=== PATIENT | female | born 1995 | race Caucasian/White ===

== ENCOUNTER 2017-08-28 11:07 | Emergency (ER) | payer OTHER ==
[~2017-08-28] VITALS: Ht 167.6 cm; Wt 63.3 kg
[2017-08-28 11:11] VITALS: TEMP 36.5; Ht 167.6 cm; Wt 63.3 kg
[2017-08-28 11:24] VITALS: O2SAT 97
[2017-08-28] MEDS ORDERED: BCPILLS PO (11:33)
[2017-08-28] MEDS ORDERED: SODIUM CHLORIDE 0.9% 1000ML 1,000 ML IV STA (11:42)
--- NOTE | 2017-08-28 11:47 | EMERGENCY ROOM VISIT NOTE ---
History Report prepared by Juliocesar: Madison Bob Under the Supervision of: Dr. Gabriel Reyez M.D. First contact with patient: 11:31 Chief Complaint: SHORTNESS OF BREATH Stated Complaint: SOB WALKING, POS DEHYDRATED, LOW BLOOD SUGAR,TACHY Nursing Triage Summary: SOB with walking, not so much sitting unless I start getting, since last night. Vomited last night and this morning. History of Present Illness The patient is a 21 year old female who presents to the Emergency Room with complaints of constant generalized illness beginning three days ago. The patient notes cough, fatigue, shortness of breath with walking, and two episodes of vomiting. The patient donated blood yesterday. She notes she went skiing last night and had to go to [employer] because her heart was racing and it "wouldn't slow down". The patient went to [facility] this morning and was referred to the ED for a further workup. She denies any fever, body aches, abdominal pain, blood or black stools. The patient's menstrual period was last week and she states it is normal. The patient takes oral contraceptive. She denies any chance of . The patient states she was recently worked up for thyroid issues which was unremarkable. The patient has a family history of of thyroid issues. Source of History: patient, friend Onset: three days ago Position: other (generalized) Quality: other (illness) Timing: constant Associated Symptoms: + cough, + SOB, + vomiting, + fatigue, No fevers, No abdominal pain Review of Systems See HPI for pertinent positives & negatives. A total of 10 systems reviewed and were otherwise negative. Past Medical & Surgical Medical Problems: (1) No Known Active Medical Problems Old medical records were reviewed. Nurse's notes were reviewed and I agree with. Family History Thyroid problem Social History Smoking Status: Never Smoker Drug Use: none Marital Status: single Housing Status: lives with roommate Occupation Status: [employer] Current/Historical Medications Scheduled Control Pills ( Control Pills), 1 TAB PO DAILY Allergies Coded Allergies: No Known Allergies (Unverified , 08/28/17) Physical Exam Vital Signs Date Time Temp Pulse Resp B/P (MAP) Pulse Ox O2 Delivery O2 Flow Rate FiO2 08/28/17 13:11 74 16 107/76 100 Room Air 08/28/17 12:10 83 08/28/17 11:24 87 20 141/106 97 Room Air 08/28/17 11:24 97 Room Air 08/28/17 11:22 99 Room Air 08/28/17 11:11 36.5 97 18 146/75 96 Room Air Physical Exam General: Non-ill appearing young female in no acute distress. HEENT: Normal cephalic atraumatic. Pupils are equal round and reactive to light. Extraocular movements are intact. Oropharynx is pink with moist mucous membranes. No swelling of the mouth lips or tongue. Neck: Supple with a midline trachea. No meningeal signs or stiffness, no JVD or bruits. No Stridor. Chest: Clear to auscultation bilaterally. No wheezes or rhonchi. No increased work of breathing. Heart: regular rate and rhythm. Abdomen: Soft nontender, nondistended without rebound guarding or rigidity. Extremities: No cyanosis clubbing or edema. No calf tenderness or assymetry Spine/Back. Non tender to palpation. No CVA tenderness Skin: Good turgor without rashes. Neurologic exam: Cranial nerves two through 12 are intact. Motor and sensation are intact and symmetrical throughout. Medical Decision & Procedures ER Provider Diagnostic Interpretation: Radiology results as stated below per my review and radiologist interpretation: CHEST ONE VIEW PORTABLE FINDINGS: The cardiac and mediastinal contours are normal. There is no evidence of focal pulmonary consolidation. There is no evidence of failure. No pleural effusions are visualized.[ IMPRESSION: No active disease in the chest. Electronically signed by: Jaden Mosquera M.D. Laboratory Results 08/28/17 11:28 Red Blood Count 4.19, Mean Corpuscular Volume 84.2, Mean Corpuscular Hemoglobin 29.4, Mean Corpuscular Hemoglobin Concent 34.8, Mean Platelet Volume 9.4, Neutrophils (%) (Auto) 68.8, Lymphocytes (%) (Auto) 23.2, Monocytes (%) (Auto) 7.3, Eosinophils (%) (Auto) 0.3, Basophils (%) (Auto) 0.3, Neutrophils # (Auto) 5.22, Lymphocytes # (Auto) 1.76, Monocytes # (Auto) 0.55, Eosinophils # (Auto) 0.02, Basophils # (Auto) 0.02 08/28/17 11:28 Test 08/28/17 11:28 08/28/17 12:00 08/28/17 12:05 White Blood Count 7.58 K/uL (4.8-10.8) Red Blood Count 4.19 M/uL (4.2-5.4) Hemoglobin 12.3 g/dL (12.0-16.0) Hematocrit 35.3 % (37-47) Mean Corpuscular Volume 84.2 fL (80-100) Mean Corpuscular Hemoglobin 29.4 pg (25-34) Mean Corpuscular Hemoglobin Concent 34.8 g/dl (32-36) Platelet Count 323 K/uL (130-400) Mean Platelet Volume 9.4 fL (7.4-10.4) Neutrophils (%) (Auto) 68.8 % Lymphocytes (%) (Auto) 23.2 % Monocytes (%) (Auto) 7.3 % Eosinophils (%) (Auto) 0.3 % Basophils (%) (Auto) 0.3 % Neutrophils # (Auto) 5.22 K/uL (1.4-6.5) Lymphocytes # (Auto) 1.76 K/uL (1.2-3.4) Monocytes # (Auto) 0.55 K/uL (0.11-0.59) Eosinophils # (Auto) 0.02 K/uL (0-0.5) Basophils # (Auto) 0.02 K/uL (0-0.2) RDW Standard Deviation 41.0 fL (36.4-46.3) RDW Coefficient of Variation 13.4 % (11.5-14.5) Immature Granulocyte % (Auto) 0.1 % Immature Granulocyte # (Auto) 0.01 K/uL (0.00-0.02) D-Dimer 240 ug/L FEU (0-500) Anion Gap 10.0 mmol/L (3-11) Est Creatinine Clear Calc Drug Dose 91.3 ml/min Estimated GFR () 103.9 Estimated GFR (Non- 89.6 BUN/Creatinine Ratio 16.3 (10-20) Calcium Level 9.3 mg/dl (8.5-10.1) Total Bilirubin 0.6 mg/dl (0.2-1) Direct Bilirubin 0.1 mg/dl (0-0.2) Aspartate Amino Transf (AST/SGOT) 27 U/L (15-37) Alanine Aminotransferase (ALT/SGPT) 34 U/L (12-78) Alkaline Phosphatase 39 U/L (45-117) Total Creatine Kinase 109 U/L (26-192) Creatine Kinase MB 1.7 ng/ml (0.5-3.6) Creatine Kinase MB Ratio 1.6 (0-3.0) Total Protein 8.7 gm/dl (6.4-8.2) Albumin 4.2 gm/dl (3.4-5.0) Lipase 78 U/L (73-393) Thyroid Stimulating Hormone (TSH) 1.780 uIu/ml (0.300-4.500) Human Chorionic Gonadotropin, Qual NEG (NEG) Influenza Type A Antigen Neg for Influ A (NEG) Influenza Type B Antigen Neg for Influ B (NEG) Bedside Troponin I < 0.030 ng/ml (0-0.045) Laboratory studies as stated above per my review. Medications Administered Medications (Trade) Dose Ordered Sig/Igor Route Start Time Stop Time Status Last Admin Dose Admin Sodium Chloride 1,000 ml @ 999 mls/hr Q1H1M STAT IV 08/28/17 11:42 08/28/17 12:42 DC 08/28/17 11:42 999 MLS/HR ECG Indication: SOB/dyspnea Rate (beats per minute): 84 Rhythm: normal sinus Findings: no acute ischemic change, no ectopy Comparison ECG Date: no prior available Change: EKG interpreted by me. ED Course 1133: Past medical records reviewed. The patient was evaluated in room B2, and a complete history and physical examination were performed. 1142: Ordered Sodium Chloride 1000 ml @ 999 mls/hr IV 1305: I updated the patient on her test results. She is resting comfortably. 1315: Upon reevaluation, the patient is resting comfortably. I discussed the results and treatment plan with her. She verbalized agreement of the treatment plan. The patient was discharged home. Medical Decision Differential diagnoses: dehydration anemia, arrhythmia PE, thyroid disease, , electrolyte and metabolic abnormality This patient comes in as described above. She was placed in room B2. She has felt weak and had some vague shortness of breath since yesterday she did give blood yesterday as well. She looks well on exam. She felt like her heart was fast at 2. IV access was established hydrated normal saline felt sick immediately better afterwards. She's non-tachycardic. She's not hypoxemic. She is afebrile and looks well. EKG shows no acute findings to suggest arrhythmia or ischemia. Chest x-ray was unremarkable does not suggest congestive heart failure, pneumonia ,or pneumothorax. She has no acute electrolyte or metabolic abnormalities. She is not . Influenza was negative. D-dimer is negative and in the low pretest probability study makes PE highly unlikely. She is feeling better and will be discharged to home and I this is a combination of potentially a viral illness on top of giving blood. She may have had some dehydration as well. She will be discharged home she is encouraged to return if: worsening symptoms, fever or chills, any new problems concerns. She is happy with the plan and discharged to home. Medication Reconcilliation Current Medication List: was personally reviewed by me Blood Pressure Screening Patient's blood pressure: Elevated blood pressure Blood pressure disposition: Elevated BP felt to be situational Impression Primary Impression: Shortness of breath Additional Impression: Dehydration Scribe Attestation The scribe's documentation has been prepared under my direction and personally reviewed by me in its entirety. I confirm that the note above accurately reflects all work, treatment, procedures, and medical decision making performed by me. Departure Information Dispostion Home / Self-Care Referrals No Doctor, Assigned (PCP) Forms HOME CARE DOCUMENTATION FORM, IMPORTANT VISIT INFORMATION Patient Instructions My [facility] Additional Instructions Rest. Drink plenty of fluids. Return if: Worsening of symptoms, shortness of breath, fever or chills, any new problems or concerns Follow-up with your doctor for recheck in the next 1-2 days if not better Problem Qualifiers
[2017-08-28 11:53] LABS: BASO % 0.3 %; BASO ABS # 0.02 K/uL (0-0.2); EOS % 0.3 %; EOS ABS # 0.02 K/uL (0-0.5); HEMATOCRIT 35.3 % (37-47); HEMOGLOBIN 12.3 g/dL (12.0-16.0); IG# 0.01 K/uL (0.00-0.02); LYMPH % 23.2 %; LYMPH ABS # 1.76 K/uL (1.2-3.4); MEAN CELL VOLUME 84.2 fL (80-100); MEAN CORPUSCULAR HEMOGLOBIN 29.4 pg (25-34); MEAN CORPUSCULAR HGB CONC 34.8 g/dl (32-36); MEAN PLATELET VOLUME 9.4 fL (7.4-10.4); MONO % 7.3 %; MONO ABS # 0.55 K/uL (0.11-0.59); NEUT % 68.8 %; NEUT ABS # 5.22 K/uL (1.4-6.5); PLATELET COUNT 323 K/uL (130-400); RED CELL DISTRIBUTION WIDTH CV 13.4 % (11.5-14.5); WHITE BLOOD COUNT 7.58 K/uL (4.8-10.8)
--- NOTE | 2017-08-28 11:56 | DIAGNOSTIC IMAGING REPORT ---
CHEST ONE VIEW PORTABLE CLINICAL HISTORY: Atypical chest pain and shortness of breath COMPARISON STUDY: No previous studies for comparison. FINDINGS: The cardiac and mediastinal contours are normal. There is no evidence of focal pulmonary consolidation. There is no evidence of failure. No pleural effusions are visualized.[ IMPRESSION: No active disease in the chest. Electronically signed by: Jaden Mosquera M.D. 08/28/2017 11:55 AM Dictated Date/Time: 08/28/2017 11:55 AM
[2017-08-28 12:01] LABS: ALBUMIN 4.2 gm/dl (3.4-5.0); CALCIUM 9.3 mg/dl (8.5-10.1); CREATININE 0.92 mg/dl (0.60-1.20); POTASSIUM 3.7 mmol/L (3.5-5.1)
[2017-08-28 12:12] LABS: CKMB 1.7 ng/ml (0.5-3.6); TOTAL PROTEIN 8.7 gm/dl (6.4-8.2)
[2017-08-28 12:54] LABS: INFLUENZA B ANTIGEN Neg for Influ B (NEG)
[2017-08-28 13:11] VITALS: BP 107/76; PULSE 74; O2SAT 100
== END 2017-08-28 13:30 | disposition home or self-care (01) ==
LOC: C.EDB 11:10
DX: R06.02 Shortness of breath (principal); E86.0 Dehydration; Z79.3 Long term (current) use of hormonal contraceptives; Z83.49 Family history of other endocrine, nutritional and metabolic diseases